=== PATIENT | female | born 1995 | race Caucasian/White ===

== ENCOUNTER 2017-01-26 14:17 | Outpatient (CLI) | payer MEDICAID ==
[~2017-01-26] VITALS: Ht 160 cm; Wt 98.2 kg
[2017-01-26 16:44] LABS: DAU SCREEN DISCLAIMER
[2017-01-26] MEDS ORDERED: METR500T PO ×2 (18:30→18:32)
[2017-01-26] MEDS ORDERED: ONDA4SOL2 PO (18:41)
== END 2017-01-26 19:20 | disposition home or self-care (01) ==
LOC: LDOP 14:17
PROVIDERS: ATTEND Obstetrics & Gynecology
DX: O26.893 Other specified pregnancy related conditions, third trimester (principal); R10.9 Unspecified abdominal pain; O21.9 Vomiting of pregnancy, unspecified; Z3A.37 37 weeks gestation of pregnancy
CPT/HCPCS: 59025; 80307; 81001; 87086; 87324; 99211; G0463

== ENCOUNTER 2017-02-10 09:30 | Inpatient (IN) | payer MEDICAID ==
[~2017-02-10] VITALS: Ht 160 cm; Wt 97.3 kg
[~2017-02-10 09:30] MED LIST: METR500T PO; ONDA4SOL2 PO
[2017-02-10] MEDS ORDERED: OXYTOCIN 30U/ 0.9% NaCL 500ML 500 ML IV SCH (10:23)
[2017-02-10] MEDS ORDERED: SODIUM CITRATE/CITRIC ACID 30 ML UDC PO ONE (10:30)
[2017-02-10] MEDS ORDERED: METOCLOPRAMIDE 5 MG/ML, 2ML IV ONE (10:30)
[2017-02-10] MEDS ORDERED: LACTATED RINGERS 1,000 ML IVBOLUS ONE (10:30)
[2017-02-10 10:43] VITALS: BP 138/88
[2017-02-10] MEDS ORDERED: PLEASE ENTER HEIGHT AND WEIGHT MC SCH (11:00)
[2017-02-10] MEDS ORDERED: NEWBORN KIT ONE (11:27)
[2017-02-10 11:31] LABS: HEMOGLOBIN 12.8 g/dL (11.7-16.4)
[2017-02-10] MEDS ORDERED: FENTANYL PF 100 MCG/2ML ONE (11:49)
[2017-02-10] MEDS ORDERED: METOCLOPRAMIDE 5 MG/ML, 2ML ONE ×2 (11:59→14:00)
[2017-02-10] MEDS ORDERED: SODIUM CITRATE/CITRIC ACID 30 ML UDC ONE ×2 (11:59→13:54)
[2017-02-10] MEDS ORDERED: PROMETHAZINE 25 MG/ML, 1ML IV PRN (12:00)
[2017-02-10] MEDS ORDERED: ALBUTEROL/IPRATROPIUM 2.5MG/0.5MG, 3 ML NPPB PRN (12:00)
[2017-02-10] MEDS ORDERED: hydrALAzine 20 MG/ML, 1ML IV PRN (12:00)
[2017-02-10] MEDS ORDERED: ONDANSETRON 2MG/ML, 2ML IVPush PRN (12:00)
[2017-02-10] MEDS ORDERED: OXYcodone 5 MG/5 ML ORAL.SOL UDC PO PRN (12:00)
[2017-02-10] MEDS ORDERED: FENTANYL PF 100 MCG/2ML IV PRN (12:00)
[2017-02-10] MEDS ORDERED: HYDROcodone/APAP 7.5-325MG/15ML UDC PO PRN (12:00)
[2017-02-10] MEDS ORDERED: MEPERIDINE/PF 25MG/0.5ML IVPush PRN (12:00)
[2017-02-10] MEDS ORDERED: MIDAZOLAM 1 MG/ML, 2ML IV PRN (12:00)
[2017-02-10] MEDS ORDERED: LABETALOL 5MG/ML, 20ML IV PRN (12:00)
[2017-02-10] MEDS: LACTATED RINGERS 1,000 ML IV SCH ×3 (12:04→18:23)
[2017-02-10] MEDS ORDERED: KETOROLAC 30 MG/1 ML ONE (14:00)
[2017-02-10] MEDS ORDERED: CEFAZOLIN 1,000 MG ONE (14:00)
[2017-02-10] MEDS ORDERED: LACTATED RINGERS 1,000 ML IV SCH ×2 (14:00→14:59)
[2017-02-10] MEDS ORDERED: OXYTOCIN 10 UNITS/ML, 1ML ONE (14:00)
[2017-02-10] MEDS ORDERED: ONDANSETRON 2MG/ML, 2ML ONE (14:00)
[2017-02-10] MEDS ORDERED: DEXAMETHASONE 4 MG/ML, 1ML ONE (14:00)
[2017-02-10] MEDS: OXYTOCIN 30U/ 0.9% NaCL 500ML 500 ML IV SCH (14:59)
[2017-02-10] MEDS ORDERED: ACETAMINOPHEN 325 MG TABLET PO PRN (15:00)
[2017-02-10] MEDS ORDERED: MISOPROSTOL 200 MCG TABLET PO PRN (15:00)
[2017-02-10] MEDS ORDERED: ONDANSETRON 2MG/ML, 2ML IV PRN (15:00)
[2017-02-10] MEDS ORDERED: OXYcodone/APAP 5/325MG TABLET PO PRN (15:00)
[2017-02-10] MEDS ORDERED: morphine SULFATE 10 MG/ML, 1ML IVPush PRN ×2 (15:00)
[2017-02-10] MEDS ORDERED: OXYTOCIN 30U/ 0.9% NaCL 500ML 500 ML ONE (15:44)
[2017-02-10] MEDS ORDERED: OXYcodone/APAP 5/325MG TABLET ONE (17:25)
[2017-02-10] MEDS ORDERED: IBUPROFEN 600 MG TABLET ONE (17:25)
[2017-02-10 18:00] VITALS: BP 148/93
[2017-02-10 19:30] VITALS: BP 143/94
[2017-02-10] MEDS: DOCUSATE 100 MG CAPSULE PO PRN (21:29)
[2017-02-10] MEDS: OXYcodone/APAP 5/325MG TABLET PO PRN (21:29)
[2017-02-10] MEDS: KETOROLAC 30 MG/1 ML IV SCH (21:29)
[2017-02-10 23:16] LABS: HEMOGLOBIN 11.8 g/dL (11.7-16.4)
[2017-02-11 00:15] VITALS: BP 149/90
[2017-02-11] MEDS: OXYTOCIN 30U/ 0.9% NaCL 500ML 500 ML IV SCH ×3 (00:59→20:59)
[2017-02-11] MEDS: LACTATED RINGERS 1,000 ML IV SCH ×3 (00:59→20:59)
[2017-02-11] MEDS: OXYcodone/APAP 5/325MG TABLET PO PRN ×5 (01:11→20:13)
[2017-02-11] MEDS: KETOROLAC 30 MG/1 ML IV SCH ×4 (03:34→21:28)
[2017-02-11 03:35] VITALS: BP 135/82
[2017-02-11] MEDS: DOCUSATE 100 MG CAPSULE PO PRN ×2 (07:46→20:12)
[2017-02-11] MEDS: PRENATAL VIT/IRON/FA 1 EACH TABLET PO SCH (07:46)
[2017-02-11 07:57] VITALS: BP 125/72
[2017-02-11 12:07] VITALS: BP 120/72
[2017-02-11 15:56] VITALS: BP 120/70
[2017-02-11 22:00] VITALS: BP 129/79
[2017-02-12] MEDS: OXYcodone/APAP 5/325MG TABLET PO PRN ×4 (01:54→23:31)
[2017-02-12] MEDS: LACTATED RINGERS 1,000 ML IV SCH (03:12)
[2017-02-12] MEDS: OXYTOCIN 30U/ 0.9% NaCL 500ML 500 ML IV SCH (03:12)
[2017-02-12] MEDS: KETOROLAC 30 MG/1 ML IV SCH ×3 (03:39→15:52)
[2017-02-12 07:45] VITALS: BP 134/98
[2017-02-12] MEDS: PRENATAL VIT/IRON/FA 1 EACH TABLET PO SCH (07:47)
[2017-02-12] MEDS: DOCUSATE 100 MG CAPSULE PO PRN ×2 (07:48→23:31)
[2017-02-12] MEDS ORDERED: KETOROLAC 30 MG/1 ML ONE (15:48)
[2017-02-12 20:39] VITALS: BP 120/79
[2017-02-12] MEDS: IBUPROFEN 600 MG TABLET PO PRN (23:31)
[2017-02-13 09:06] VITALS: BP 142/97
[2017-02-13] MEDS: IBUPROFEN 600 MG TABLET PO PRN (09:14)
[2017-02-13] MEDS: PRENATAL VIT/IRON/FA 1 EACH TABLET PO SCH (09:14)
[2017-02-13] MEDS: OXYcodone/APAP 5/325MG TABLET PO PRN ×2 (09:14→13:11)
[2017-02-13] MEDS: DOCUSATE 100 MG CAPSULE PO PRN (09:14)
[2017-02-13] MEDS ORDERED: IBUP-1222 PO (12:27)
[2017-02-13] MEDS ORDERED: OXYC-302 PO (12:27)
== END 2017-02-13 14:10 | disposition home or self-care (01) | DRG 766 ==
LOC: LDIP 10:17 → 2NW 17:46
PROVIDERS: ADMIT Obstetrics & Gynecology; ATTEND Obstetrics & Gynecology
PROC: 10D00Z1 Extraction of Products of Conception, Low, Open Approach (ICD-10-PCS; principal; 2017-02-10)
DX: O34.211 Maternal care for low transverse scar from previous cesarean delivery (principal); Z37.0 Single live birth; Z3A.39 39 weeks gestation of pregnancy; Z88.5 Allergy status to narcotic agent
CPT/HCPCS: 36415; 85025; 86850; 86900; J0690; J1100; J1885; J2405; J3010; J2590; J2765; J7120

== ENCOUNTER 2017-02-18 17:48 | Emergency (ER) | payer MEDICAID ==
[~2017-02-18] VITALS: Ht 160 cm; Wt 90.7 kg
[~2017-02-18 17:48] MED LIST changes: +IBUP-1222 PO; +OXYC-302 PO
[2017-02-18 17:49] VITALS: BP 160/97
== END 2017-02-18 18:14 | disposition home or self-care (01) ==
LOC: ED 18:08
DX: L03.311 Cellulitis of abdominal wall (principal); B37.2 Candidiasis of skin and nail; Z88.6 Allergy status to analgesic agent
CPT/HCPCS: 99283

== ENCOUNTER 2017-07-08 17:47 | Emergency (ER) | payer MEDICAID ==
[~2017-07-08] VITALS: Ht 160 cm; Wt 85.3 kg
[2017-07-08] MEDS ORDERED: ONDANSETRON 2MG/ML, 2ML IVPush ONE (18:00)
[2017-07-08] MEDS ORDERED: SODIUM CHLORIDE 0.9% 1,000ML IVBOLUS ONE (18:00)
[2017-07-08] MEDS ORDERED: SODIUM CHLORIDE FLUSH 10ML SYR IVF ONE (18:00)
[2017-07-08 18:26] LABS: HEMATOCRIT 43.2 % (34.6-47.8); HEMOGLOBIN 14.6 g/dL (11.7-16.4); WHITE BLOOD COUNT 11.8 x10^3/uL (3.4-10)
[2017-07-08] MEDS ORDERED: ONDANSETRON 2MG/ML, 2ML ONE (18:26)
[2017-07-08] MEDS ORDERED: KETOROLAC 30 MG/1 ML IVPush ONE (18:30)
[2017-07-08] MEDS ORDERED: DIPHENHYDRAMINE 50 MG/ML, 1ML IVPush ONE (18:30)
[2017-07-08] MEDS ORDERED: KETOROLAC 30 MG/1 ML ONE (18:31)
[2017-07-08] MEDS ORDERED: DIPHENHYDRAMINE 50 MG/ML, 1ML ONE (18:31)
[2017-07-08 18:38] LABS: ASPARTATE AMINO TRANSFERASE 24 U/L (15-37); BLOOD UREA NITROGEN 13 mg/dL (7-18)
[2017-07-08 20:38] VITALS: BP 114/59
== END 2017-07-08 20:45 | disposition home or self-care (01) ==
LOC: ED 19:17
DX: R42 Dizziness and giddiness (principal); R11.2 Nausea with vomiting, unspecified; R51 Headache
CPT/HCPCS: 36415; 80053; 81001; 83690; 84703; 85025; 93005; 96361; 96374; 96375; 99285; J1200; J1885; J2405; J7030

== ENCOUNTER 2017-12-07 17:30 | Emergency (ER) | payer MEDICAID ==
[~2017-12-07] VITALS: Ht 160 cm; Wt 90.0 kg
[2017-12-07 18:22] LABS: BASOPHILS # (AUTO) 0.03 x10^3/uL (0-0.1); BASOPHILS % (AUTO) 0 % (0-1); EOSINOPHILS % (AUTO) 2 % (1-7); LYMPHOCYTES # (AUTO) 2.93 x10^3/uL (1-3.4); LYMPHOCYTES % (AUTO) 34 % (22-44); MD NO; MEAN CORPUSCULAR HEMOGLOBIN 28.2 pg (27.0-34.8); MEAN CORPUSCULAR VOLUME 82.9 fL (80-100); MEAN PLATELET VOLUME 9.3 fL (7.4-10.4); MONOCYTES # (AUTO) 0.65 x10^3/uL (0.2-0.8); MONOCYTES % (AUTO) 8 % (2-9); NEUTROPHILS # (AUTO) 4.75 x10^3/uL (1.8-6.8); NEUTROPHILS % (AUTO) 56 % (42-75); PLATELET COUNT 273 x10^3/uL (130-400); RED BLOOD COUNT 5.54 x10^6/uL (3.82-5.3); RED CELL DISTRIBUTION WIDTH 13.2 % (9.6-15.2)
[2017-12-07 18:32] LABS: ALANINE AMINOTRANSFERASE 67 U/L (12-78); ALBUMIN 4.3 g/dL (3.4-5.0); ANION GAP 10 mmol/L (5-15); CALCIUM 9.5 mg/dL (8.5-10.1); CHLORIDE 105 mmol/L (98-107); CREATININE 0.79 mg/dL (0.55-1.02)
[2017-12-07 18:36] LABS: ALKALINE PHOSPHATASE 140 U/L (45-117); BILIRUBIN,TOTAL 1.7 mg/dL (0.2-1.0)
[2017-12-07 20:52] LABS: CLUE CELLS NONE SEEN (NONE SEEN)
[2017-12-07 20:53] LABS: WET PREP WBCS MANY (FEW)
[2017-12-07 21:56] VITALS: BP 143/93
== END 2017-12-07 21:58 | disposition home or self-care (01) ==
LOC: ED 21:05
DX: N76.0 Acute vaginitis (principal); B96.89 Other specified bacterial agents as the cause of diseases classified elsewhere; Z97.5 Presence of (intrauterine) contraceptive device
CPT/HCPCS: 36415; 76830; 80053; 84703; 85025; 87210; 87491; 87591; 87808; 99285

== ENCOUNTER 2020-12-16 18:30 | Emergency (ER) | payer MEDICAID ==
[~2020-12-16] VITALS: Ht 160 cm; Wt 92.1 kg
[~2020-12-16 18:30] MED LIST changes: -OXYC-302 PO; +OXYC1TAB14 PO
--- NOTE | 2020-12-16 18:46 | NUR ---
Pt reports numbness on right side of face, dizziness, headache that started Tuesday afternoon and "my hair feels like I have a wig on my head".
--- NOTE | 2020-12-16 18:48 | NUR ---
Pt reports she cannot feel me touching her on the left side of her face, can feel on the left side of face, arms and legs bilaterally. Strength equal and intact bilaterally. No facial droop noted- able to smile, raise eyebrows equal bilaterally.
--- NOTE | 2020-12-16 19:00 | NUR ---
Acute stroke dysphagia screen passed
[2020-12-16] MEDS ORDERED: MECLIZINE CHEWABLE 25 MG TAB ONE (19:11)
--- NOTE | 2020-12-16 19:13 | NUR ---
Lab at bedside.
--- NOTE | 2020-12-16 19:14 | NUR ---
Medicated per [facility]
[2020-12-16 19:27] LABS: BASOPHILS % (AUTO) 1 % (0-1); EOSINOPHILS % (AUTO) 3 % (1-7); LYMPHOCYTES % (AUTO) 34 % (22-44); MEAN CORPUSCULAR HEMOGLOBIN 27.5 pg (27.0-34.8); MEAN CORPUSCULAR HGB CONC 33.8 g/dL (32.4-35.8); MEAN PLATELET VOLUME 8.3 fL (7.4-10.4); MONOCYTES % (AUTO) 6 % (2-9); NEUTROPHILS % (AUTO) 57 % (42-75); PLATELET COUNT 288 x10^3/uL (130-400); RED BLOOD COUNT 4.71 x10^6/uL (3.82-5.3); RED CELL DISTRIBUTION WIDTH 14.6 % (9.6-15.2)
[2020-12-16 19:30] LABS: MD NO
[2020-12-16] MEDS ORDERED: MECLIZINE CHEWABLE 25 MG TAB PO ONE (19:30)
[2020-12-16 19:39] LABS: ALANINE AMINOTRANSFERASE 39 U/L (12-78); ALBUMIN 3.9 g/dL (3.4-5.0); ANION GAP 9 mmol/L (5-15); CALCIUM 9.2 mg/dL (8.5-10.1); CHLORIDE 109 mmol/L (98-107); CREATININE 0.72 mg/dL (0.55-1.02)
[2020-12-16 19:50] LABS: ALKALINE PHOSPHATASE 74 U/L (45-117); BILIRUBIN,TOTAL 0.7 mg/dL (0.2-1.0); TOTAL PROTEIN 7.5 g/dL (6.4-8.2)
[2020-12-16 21:00] VITALS: BP 124/81
== END 2020-12-16 21:25 | disposition home or self-care (01) ==
LOC: ED 18:53
DX: R20.1 Hypoesthesia of skin (principal); R51.9 Headache, unspecified; R42 Dizziness and giddiness; R20.0 Anesthesia of skin
CPT/HCPCS: 36415; 80053; 84443; 84703; 85025; 93005; 99284